=== PATIENT | female | born 1995 | race Caucasian/White ===

== ENCOUNTER → 2018-11-03 11:43 | Day surgery (SDC) | payer OTHER ==
[~2018-11-03 11:43] MED LIST: Acetaminophen TAB* 325 MG ONE; Acetaminophen TAB* 325 MG PO ONE; Acetaminophen TAB* 325 MG PO PRN; Bacitracin OINTMENT* 0.5% 0.5 oz TUBE ONE; Buffered Lidocaine 1% SYRIN* 1 ML/SYRINGE INTRADERM ONE; Ciprofloxacin 0.3% OPTH.SOL* BTL ONE; Dexamethasone IV* 4 MG/ML 1 ML (4 MG) ONE; DiMENhydriNATE IV* 50 MG/ML VIAL IV PUSH PRN; DiMENhydriNATE IV* 50 MG/ML VIAL ONE; EPINEPHRINE 1 MG/ML 1 ML VIAL ONE; Famotidine IV* 10 MG/ML 2 ML (20 mg) ONE; Gabapentin CAP(*) 300 MG ONE; Gabapentin CAP(*) 300 MG PO ONE; Gelfoam 12-7 ADSORBABL SPONGE* 1 EA SPONGE ONE; HYDROcodone/ACETAMIN 5-325 MG* 1 TAB ONE; HYDROcodone/ACETAMIN 5-325 MG* 1 TAB PO PRN; Ketorolac INJ* 30 MG/ML 1 ML VIAL ONE; Lactated Ringers 1000 ML Bag* 1,000 ML IV SCH; Levalbuterol 0.63MG/3ML NEB* UNIT OF USE INH PRN; Lidocaine 2% EPI 1:200000 MPF*10-20 ML VIAL ONE; Lidocaine 2% PF * 5 ML VIAL ONE; Methylene Blue 0.5 %* 50 MG/10 ML AMP IV ONE; Midazolam* 1 MG/ML 2 ML VIAL (2 MG) ONE; Naloxone* 0.4 MG/ML 1 ML VIAL IV PRN; Ondansetron INJ* 2 MG/ML VIAL IV PRN; Ondansetron INJ* 2 MG/ML VIAL ONE; PROCHLORPERAZINE INJ 5 MG/ML 2 ML VIAL IV PRN; Propofol* 10 MG/ML 20 ML BTL ONE; diPHENhydraMINE IV* 50 MG/ML 1 ml VIAL (BENADRYL) IV PRN; fentaNYL* 50 MCG/ML 2 ML VIAL (100 MCG VIAL) IV PRN; fentaNYL* 50 MCG/ML 2 ML VIAL (100 MCG VIAL) ONE
[2018-11-03 18:18] VITALS: BP 119/70
--- NOTE | 2018-11-03 23:35 | OP ---
DATE OF OPERATION: 11/03/18 - [facility] DATE OF : [birth year] SURGEON: Stone Davis MD PRE-OP DIAGNOSIS: Recurrent cholesteatoma, right mastoid. POST-OP DIAGNOSIS: Recurrent cholesteatoma, right mastoid. OPERATIVE PROCEDURE: Revision tympanomastoidectomy with temporalis graft. BRIEF HISTORY: This is a 23-year-old female with chronic otorrhea, large granuloma. CT scan shows evidence of soft tissue opacification, most likely indicative of recurrent cholesteatoma. DESCRIPTION OF PROCEDURE: The patient was taken to the operating room, general anesthesia was given, and the patient was intubated with LMA. NIM monitoring was then carried out. The ear was then prepped and draped in the usual fashion. Microscope was utilized. Postauricular incision was identified from previous. Infiltrated with 2% lidocaine with epinephrine and subsequently skin incision was created and the ear was withdrawn. Large defect in the mastoid was noted. Copious cholesteatoma, some of which was large amounts of granulation tissue. Careful drilling was carried out at the mastoid bowl to smooth out and remove all of the diseased mucosa completely along the facial ridge and then along the superior tympanum and epitympanum. Once this was, I felt, satisfactorily clean with no evidence of any mucosa or residual cholesteatoma, I opened the tympanic membrane and there was no evidence of cholesteatoma here. There were some adhesive changes, I was not going to do any functional procedure at this time. I harvested a temporalis fascia graft. This was laid into the defect of the mastoid bowl. This was packed with Gelfoam which was soaked with ofloxacin, and the postauricular incision was closed in 2 layers. Mastoid dressing was applied. The patient was then awakened, sent to the recovery room in stable condition. Instrument and sponge counts were correct. Blood loss minimal. [id number]/[facility] #: [id number] [facility]one
== END | disposition home or self-care (01) ==
LOC: OR 11:43
PROVIDERS: ATTEND Otolaryngology
DX: H92.11 Otorrhea, right ear (principal); Z87.891 Personal history of nicotine dependence; H71.11 Cholesteatoma of tympanum, right ear; H72.822 Total perforations of tympanic membrane, left ear; H70.11 Chronic mastoiditis, right ear
CPT/HCPCS: 81025; 88304; A9270-GY; J1100; J1240; J1885; J2250; J2405; J2704; J3010